=== PATIENT | female | born 1955 | race Caucasian/White ===

== ENCOUNTER → 2024-04-11 14:22 | Outpatient (REF) | payer OTHER, SELFPAY | LOC: WDC 14:22 | PROVIDERS: ATTENDING PHYSICIAN Obstetrics & Gynecology; FAMILY PHYSICIAN Family Medicine | DX: Z12.31 Encounter for screening mammogram for malignant neoplasm of breast (principal); Z78.0 Asymptomatic menopausal state | CPT/HCPCS: 77063; 77067; 77080 ==

== ENCOUNTER → 2024-04-19 12:01 | Outpatient (REF) | payer OTHER, SELFPAY | LOC: DHCBC/DCA 12:01 | PROVIDERS: ATTENDING PHYSICIAN Internal Medicine Cardiovascular Disease; FAMILY PHYSICIAN Family Medicine | DX: Z01.810 Encounter for preprocedural cardiovascular examination (principal) | CPT/HCPCS: 78452; 93017; A9500; J2785 ==

== ENCOUNTER → 2024-04-24 07:21 | Outpatient (REF) | payer OTHER, SELFPAY | LOC: RCS 07:21 | PROVIDERS: ATTENDING PHYSICIAN Internal Medicine Cardiovascular Disease; FAMILY PHYSICIAN Family Medicine | DX: Z01.810 Encounter for preprocedural cardiovascular examination (principal); I44.7 Left bundle-branch block, unspecified | CPT/HCPCS: 93306 ==

== ENCOUNTER → 2025-02-25 14:15 | Outpatient (REF) | payer OTHER, SELFPAY | LOC: RAD 14:15 | PROVIDERS: ATTENDING PHYSICIAN Family Medicine | DX: R09.89 Other specified symptoms and signs involving the circulatory and respiratory systems (principal) | CPT/HCPCS: 93880 ==

== ENCOUNTER → 2025-04-22 08:47 | Outpatient (REF) | payer OTHER, SELFPAY | LOC: WDC 08:47 | PROVIDERS: ATTENDING PHYSICIAN Family Medicine | DX: Z12.31 Encounter for screening mammogram for malignant neoplasm of breast (principal) | CPT/HCPCS: 77063; 77067 ==

== ENCOUNTER 2025-09-18 08:06 | Emergency (ER) | payer SELFPAY ==
[2025-09-18 08:07] VITALS: BP 164/122
--- NOTE | 2025-09-18 08:47 | ED.GENMED ---
History of Present Illness
General
Chief Complaint: Musculo-Skeletal Complaint
Source: patient
Time Seen by Provider: 09/18/25 08:24
History of Present Illness
History of Present Illness:
Mariann is a 70-year-old female with past medical history of right shoulder dislocation who presents after falling at work after tripping over an oven wheel. Had extreme right shoulder pain after the fall and while attempting to move shoulder felt a
pop. Pain was improved after. Presented to the ER with improving right shoulder pain. Denies striking her head or loss of consciousness. No associated symptoms
Past History
Past History
ED Past Medical History: HTN
ED Past Surgical History: Orthopedic
Phy Exam
General Physical Exam
General Presentation: well appearing and no apparent distress
General Skin: warm and dry
General Habitus: normal
General Mental: alert
General Hydration: appears well hydrated
ENT Exam
ENT Exam: EOMI, pharynx normal, neck supple and normocephalic
Eye Exam
Eye Exam: PERRL, cornea clear and conjunctiva normal
Cardiovascular Exam
Cardiovascular Exam: regular rate/rhythm, no edema, no murmur and normal peripheral pulses
Pulmonary Exam
Pulmonary Exam: lungs clear, no respiratory distress, no rales, no crackles, no rhonchi, no stridor, no wheezing and no cough
Gastrointestinal Exam
Gastrointestinal Exam: normal bowel sounds, non tender, soft, no organomegaly, no pulsatile mass and non distended
Neurological Exam
Neurological Exam: alert, oriented x3, no motor deficits and speech normal
Musculoskeletal Exam
Musculoskeletal Exam: full ROM (pain with right shoulder ROM - ROM intact) and no edema
Skin Exam
Skin Exam: normal color, warm/dry, no rash and no petechia
Psychiatric Exam
Psychiatric Exam: normal mood/affect
Course
Orders/Labs/Results
Orders:
Orders
09/18/25 08:11
CR Shoulder - Right Min 2 View Urgent
Comment:
Reason For Exam: fall, shoulder pain
Vital Signs
Initial and Last Documented VS:
Initial Vital Signs
Temp Pulse Resp BP Pulse Ox
36.6 C 94 18 164/122 97
09/18/25 08:07 09/18/25 08:07 09/18/25 08:07 09/18/25 08:07 09/18/25 08:07
Last Documented Vital Signs
Temp Pulse Resp BP Pulse Ox
36.6 C 94 18 164/122 97
09/18/25 08:07 09/18/25 08:07 09/18/25 08:07 09/18/25 08:07 09/18/25 08:07
MDM/Problems Addressed
Differential Diagnosis Includes:
Differential includes shoulder strain, shoulder dislocation status post reduction, fracture, contusion
X-ray reviewed with no fracture or dislocation. Patient history discussed that shoulder may have dislocated and relocated however this is unable to be determined without any imaging. She is at risk for subsequent dislocations given her history of
shoulder dislocations. Patient wishes to return to work tomorrow on light duty which is appropriate. Work note provided. Return precautions discussed
*Pulse Oximetry
SaO2: 97
Oxygen Mode of Delivery: Room air
Patient hypoxic: no
*Critical Care Note
Total Time (30-74mins, 75-104mins- exclusive of procedures): Not Applicable
ED Attending Note
-
Portions of this chart may have been created with voice recognition software.� Occasional wrong word or��sound alike� substitutions may have occurred due to the inherent limitations of voice recognition software.
Discharge Plan
Departure
Patient Disposition: Home (Routine Discharge)
Date of Disposition: 09/18/25
Time of Disposition: 08:37
Patient with high blood pressure during this ER visit?: Yes
Discharge Problem:
Acute shoulder pain
Instructions: Shoulder pain - ED (DC)
Prescriptions:
No Action
oxycodone-acetaminophen 5 MG/325 MG tablet
1 tab PO Q4HPRN PRN (Reason: pain) Qty: 12 0RF
hydrocodone-acetaminophen 1 TABLET tablet
1 tab PO Q4HPRN PRN (Reason: pain) Qty: 8 0RF
hydrocodone-acetaminophen 1 TABLET tablet
1 - 2 tab PO Q4HPRN PRN (Reason: pain) Qty: 15 0RF
Referrals:
Shaheen Bruno, [Family Provider, Family Practice]
Stand Alone Forms: Return to Work
Interventions
Interventions:
*Risk Screen - Suicide Last Done: 09/18/25 08:07
*General Assessment Last Done: 09/18/25 08:07
*Neglect/Abuse Screening Last Done: 09/18/25 08:07
Discharge Date and Time
Print Language: ALB[place]
== END 2025-09-18 08:57 | disposition home or self-care (01) ==
LOC: EMR 08:06
PROVIDERS: EMERGENCY PHYSICIAN Emergency Medicine; FAMILY PHYSICIAN Family Medicine
DX: M25.511 Pain in right shoulder (principal); W18.09XA Striking against other object with subsequent fall, initial encounter; Y99.0 Civilian activity done for income or pay; I10 Essential (primary) hypertension
CPT/HCPCS: 99283; 73030